=== PATIENT | male | born 1955 | race Caucasian/White ===

== ENCOUNTER → 2024-01-14 09:42 | Outpatient (REF) | payer MEDICARE, SELFPAY | LOC: HWRAD 09:42 | PROVIDERS: ATTENDING PHYSICIAN Internal Medicine; FAMILY PHYSICIAN Family Medicine | DX: C78.00 Secondary malignant neoplasm of unspecified lung (principal); C64.9 Malignant neoplasm of unspecified kidney, except renal pelvis | CPT/HCPCS: 71260; 74177; Q9967 ==

== ENCOUNTER → 2024-05-25 09:22 | Outpatient (REF) | payer MEDICARE, SELFPAY | LOC: HWRAD 09:22 | PROVIDERS: ATTENDING PHYSICIAN Internal Medicine; FAMILY PHYSICIAN Family Medicine | DX: C78.00 Secondary malignant neoplasm of unspecified lung (principal); C64.9 Malignant neoplasm of unspecified kidney, except renal pelvis | CPT/HCPCS: 71260; 74177; Q9967 ==

== ENCOUNTER → 2025-02-22 12:05 | Outpatient (REF) | payer MEDICARE, SELFPAY | LOC: RAD 12:05 | PROVIDERS: ATTENDING PHYSICIAN Internal Medicine; FAMILY PHYSICIAN Family Medicine | DX: C78.00 Secondary malignant neoplasm of unspecified lung (principal); C64.9 Malignant neoplasm of unspecified kidney, except renal pelvis | CPT/HCPCS: 71260; 74177; Q9967 ==